=== PATIENT | male | born 1985 | race Caucasian/White ===

== ENCOUNTER 2018-04-06 08:07 | Emergency (ER) | payer BC, OTHER ==
[~2018-04-06] VITALS: Ht 180.3 cm; Wt 113.4 kg
--- NOTE | ~2018-04-06 | EKG ---
[address] [address] ELECTROCARDIOGRAM REPORT Name: [place] GARCÍA Room #: [facility] Alexi#: [id number] Admission: 04/06/18 Attend Phys: Discharge: 04/06/18 Date of : 83 Report #: [id number] THIS REPORT FOR: //name// [facility] ED Test Date: 2018-04-06 Test Time: 08:28:59 Pat Name: KY GARCÍA Department: Room: Gender: [employer]water [employer]: TORI : 1985 Requested By: Remberto Munguia Order Number: [id number] MD: Alex Mulligan Measurements Intervals Cooter Rate: 69 P: 18 TN: 147 QRS: 15 QRSD: 98 T: 9 QT: 382 QTc: 410 Interpretive Statements Sinus rhythm No significant abnormality No previous ECG available for comparison Electronically Signed On 04-07-2018 8:19:15 CDT by Alex Mulligan [email or web address] <ELECTRONICALLY SIGNED> By: Alex Mulligan MD, [facility] 04/07/18 0819 0828 0828 Alex Mulligan MD, FAC /EPI
[2018-04-06] MEDS ORDERED: WELLBUTRIN XL300 MG PO (08:36)
[2018-04-06] MEDS ORDERED: SINGULAIR 10 MG10 M1 PO (08:37)
[2018-04-06 08:41] LABS: ANION GAP 7 mmol/L (7-16); BUN 13 mg/dL (7-18); CALCIUM 8.5 mg/dL (8.5-10.1); CHLORIDE 103 mmol/L (98-107); CO2 29 mmol/L (21-32); CREATININE 1.1 mg/dL (0.7-1.3); GLUCOSE 98 mg/dL (74-106); POTASSIUM 3.2 mmol/L (3.5-5.1); SODIUM 139 mmol/L (136-145)
[2018-04-06 08:51] LABS: TROPONIN-I <0.06 ng/mL (<0.06)
[2018-04-06 09:24] LABS: ABSOLUTE NEUTROPHILS 6.3 thou/uL (1.4-8.2); BASOPHILS 0.8 % (0.0-2.0); EOSINOPHILS 1.7 % (0.0-3.0); HEMATOCRIT 40.4 % (42.0-52.0); HEMOGLOBIN 13.8 gm/dL (14.0-18.0); LYMPHOCYTES 23.4 % (24.0-44.0); MCH 29.3 pg (26.0-34.0); MCHC 34.1 g/dL (28.0-37.0); MCV 85.8 fL (80.0-100.0); MONOCYTES 9.2 % (1.0-8.0); PLATELET COUNT 263 thou/uL (150-400); POLYS 64.9 % (36.0-66.0); RBC 4.71 mil/uL (4.50-6.00); RDW 13.7 % (10.5-14.5); WBC 9.7 thou/uL (4.0-11.0)
[2018-04-06] MEDS ORDERED: PREDNISONE 20 M20 M1 PO (09:46)
[2018-04-06 10:07] VITALS: BP 121/83
== END 2018-04-06 10:12 | disposition home or self-care (01) ==
LOC: ER 08:07
PROVIDERS: Emergency Medicine
DX: R06.00 Dyspnea, unspecified (principal); R05 Cough; F32.9 Major depressive disorder, single episode, unspecified

== ENCOUNTER → 2018-04-13 | Outpatient (CLI) | payer BC, OTHER ==
[~2018-04-13] MED LIST: PREDNISONE 20 M20 M1 PO; SINGULAIR 10 MG10 M1 PO; WELLBUTRIN XL300 MG PO
== END ==
LOC: ULTRA 15:01
DX: E01.0 Iodine-deficiency related diffuse (endemic) goiter (principal)

== ENCOUNTER → 2020-03-20 | Outpatient (CLI) | payer BC, OTHER | LOC: LAB 13:30 | PROVIDERS: ATTEND Nurse Practitioner | DX: Z20.828 Contact with and (suspected) exposure to other viral communicable diseases (principal) ==